=== PATIENT | male | born 1955 | race Caucasian/White ===

== ENCOUNTER 2018-03-19 06:13 | Day surgery (SDC) | payer BC ==
[2018-03-19] MEDS ORDERED: PROPOFOL 60 ML (08:19)
== END 2018-03-19 10:02 | disposition home or self-care (01) ==
LOC: GIL 06:13
DX: Z86.010 Personal history of colon polyps (principal); K29.60 Other gastritis without bleeding; Q43.8 Other specified congenital malformations of intestine; I10 Essential (primary) hypertension; E78.5 Hyperlipidemia, unspecified; E11.9 Type 2 diabetes mellitus without complications; E03.9 Hypothyroidism, unspecified
CPT/HCPCS: 43239; 82962; 88305; 88313